=== PATIENT | female | born 1985 | race Caucasian/White ===

== ENCOUNTER 2020-07-31 14:51 | Outpatient (CLI) | payer BC, SELFPAY ==
--- NOTE | ~2020-07-31 | XR_ITS ---
EXAMINATION: XR lumbar spine min 4V DATE: 07/31/2020 15:26 INDICATION: Failed back syndrome. TECHNIQUE: 4 views of lumbar spine including flexion and extension views were obtained. COMPARISON: None. FINDINGS: There is 11 degrees dextroscoliosis of thoracolumbar spine. There is no abnormal motion wit h flexion or extension. Vertebral body heights are normal. There are Schmorl's nodes at L1-L2. Interv ertebral disc heights are normal. The facet joints are unremarkable. There are epidural electrodes in thoracic spine. Surgical clips in the right upper quadrant are likely from cholecystectomy. IMPRESSION: 1. Thoracolumbar dextroscoliosis. Reviewed, dictated and finalized at location A.
--- NOTE | ~2020-07-31 | XR_ITS ---
EXAMINATION: XR thoracic spine 2V DATE: 07/31/2020 15:26 INDICATION: Failed back syndrome. TECHNIQUE: 2 views of thoracic spine were obtained. COMPARISON: None. FINDINGS: There is 6 degrees levocurvature of thoracic spine. Vertebral body heights and intervertebr al disc heights are normal. The facet joints are unremarkable. Surgical clips in the right upper quad rant are likely from cholecystectomy. Epidural electrodes are noted. IMPRESSION: 1. Thoracic levocurvature. Reviewed, dictated and finalized at location A. IMPRESSION: 1. Thoracic levocurvature.
== END 2020-07-31 14:52 | disposition home or self-care (01) ==
PROVIDERS: PCP Physician Assistant; Visit Provider Neurological Surgery
DX: M96.1 Postlaminectomy syndrome, not elsewhere classified (principal)
CPT/HCPCS: 72070; 72110

== ENCOUNTER 2020-08-19 06:53 | Outpatient (NON) | payer BC, SELFPAY ==
[2020-08-21 13:31] LABS: SARS-CoV-2 RNA PCR Negative
== END 2020-08-19 06:54 ==
LOC: ANHCOVIDDT 06:59
PROVIDERS: PCP Physician Assistant; Visit Provider Neurological Surgery
DX: Z01.818 Encounter for other preprocedural examination (principal); Z20.828 Contact with and (suspected) exposure to other viral communicable diseases
CPT/HCPCS: 87635; C9803; U0003

== ENCOUNTER 2021-07-31 14:45 | Outpatient (CLI) | payer OTHER, SELFPAY ==
--- NOTE | ~2021-07-31 | MM_ITS ---
EXAMINATION: MM screening bryn BI w andrei HISTORY: Screening mammogram; baseline examination TECHNIQUE: Craniocaudal and mediolateral oblique 3-D tomosynthesis images were obtained and synthetic 2-D images were generated. CAD analysis was submitted and interpreted. COMPARISON: No prior mammogram is available for comparison at this institution. BREAST PARENCHYMAL COMPOSITION: There are scattered areas of fibroglandular density. FINDINGS: There is an asymmetric approximately 9 mm opacity in the posterior lower inner right breast . Diagnostic right mammogram is recommended, with ultrasound if required. Otherwise no suspicious mass, architectural distortion, malignant calcification, skin thickening or r etraction of either breast is detected. IMPRESSION: 1. No mammographic evidence of malignancy. 2. Recommend routine screening mammography in one year. BI-RADS Category 0: Incomplete: Needs additional imaging evaluation. Reviewed, dictated and finalized at location A.
== END 2021-07-31 14:46 | disposition home or self-care (01) ==
PROVIDERS: PCP Physician Assistant
DX: Z12.31 Encounter for screening mammogram for malignant neoplasm of breast (principal); R92.8 Other abnormal and inconclusive findings on diagnostic imaging of breast
CPT/HCPCS: 77063; 77067